=== PATIENT | male | born 1950 | race African-American/Black ===

== ENCOUNTER 2017-07-11 16:43 | Emergency (ER) | payer MEDICARE, BC ==
[2017-07-11] MEDS ORDERED: Lidocaine 2% PF 10 ML AMP (For Epidural Use) ONE (18:20)
--- NOTE | 2017-07-11 20:08 | RAD ---
THREE VIEWS OF THE RIGHT FOOT: 07/11/17 COMPARISON: None. HISTORY: Right foot pain after injury. FINDINGS: Three views of the right foot shows dislocation of the metatarsophalangeal joints of the third and f ourth toes. Surrounding soft tissue swelling is seen. No obvious fracture is seen but overlapping duong ne limits evaluation. There are degenerative changes in the midfoot. IMPRESSION: Dislocation of the metatarsophalangeal joints of the third and fourth toes. POS: HELDER
--- NOTE | 2017-07-11 21:26 | RAD ---
THREE VIEWS OF THE RIGHT FOOT: 07/11/17 COMPARISON: None. HISTORY: Reduction of dislocated toes of the right foot. FINDINGS: Three views of the right foot shows interval reduction of the third and fourth toe metatarsophalange al dislocations. No fracture is seen. Degenerative changes are seen in the midfoot. IMPRESSION: Reduction of third and fourth metatarsophalangeal dislocations. POS: SURYA
== END 2017-07-11 19:29 | disposition home or self-care (01) ==
LOC: ERS 16:43
DX: S93.124A Dislocation of metatarsophalangeal joint of right lesser toe(s), initial encounter (principal); Z79.899 Other long term (current) drug therapy; W17.89XA Other fall from one level to another, initial encounter
CPT/HCPCS: 28630; J2001

== ENCOUNTER 2021-01-14 14:33 | Outpatient (CLI) | payer MEDICARE | END 2021-01-14 14:34 | disposition home or self-care (01) | LOC: BICRAD 14:33 | PROVIDERS: ATTEND Internal Medicine Medical Oncology | DX: C90.00 Multiple myeloma not having achieved remission (principal); D47.2 Monoclonal gammopathy | CPT/HCPCS: 77075; 80053; 82248; 83615; 83883; 84100; 84550; 86334 ==

== ENCOUNTER 2021-02-01 08:17 | Day surgery (SDC) | payer MEDICARE ==
[2021-01-28 13:52] VITALS: BMI 39.5
[2021-02-01 09:45] LABS: PTT 26.1 sec (22.9-36.1); Prothrombin Time 13.3 sec (12.0-14.7)
[2021-02-01 12:01] VITALS: BP 120/70; TEMP 98
== END 2021-02-01 12:25 | disposition home or self-care (01) ==
LOC: CT 08:17
PROVIDERS: ATTEND Internal Medicine Medical Oncology
PROC: 07DR3ZX Extraction of Iliac Bone Marrow, Percutaneous Approach, Diagnostic (ICD-10-PCS; principal; 2021-02-01)
DX: C90.00 Multiple myeloma not having achieved remission (principal); D47.2 Monoclonal gammopathy; E78.5 Hyperlipidemia, unspecified; J45.909 Unspecified asthma, uncomplicated; K21.9 Gastro-esophageal reflux disease without esophagitis; G47.33 Obstructive sleep apnea (adult) (pediatric); N40.0 Benign prostatic hyperplasia without lower urinary tract symptoms; Z79.82 Long term (current) use of aspirin; Z79.899 Other long term (current) drug therapy
CPT/HCPCS: 20225; 77012; 85097; 88184; 88237; 88264; 88280; 88305; 88307; 88311; 88313; 88341; 88342; 88365

== ENCOUNTER 2021-02-03 08:59 | Outpatient (CLI) | payer MEDICARE | END 2021-02-03 09:00 | disposition home or self-care (01) | LOC: PET 08:59 | PROVIDERS: ATTEND Internal Medicine Medical Oncology | DX: C90.00 Multiple myeloma not having achieved remission (principal); D47.2 Monoclonal gammopathy | CPT/HCPCS: 78815; A9552 ==

== ENCOUNTER 2023-02-02 09:53 | Inpatient (IN) | payer MEDICARE, OTHER ==
[2023-02-02 10:47] LABS: #Lymphocytes 0.5 thou/uL (1.20-3.40); #Monocytes 0.2 thou/uL (0.11-0.59); #Neutrophils 4.8 thou/uL (1.40-6.50); %Basophils 0.2 % (0.0-1.0); %Eosinophils 0.2 % (0.0-10.0); %Lymphocytes 9.4 % (21.0-51.0); %Monocytes 2.7 % (0.0-10.0); %Neutrophils 87.5 % (42.0-75.0); Hemoglobin 12.2 g/dL (14.0-18.0); Mean Corpuscular Hemoglobin 31.5 pg (27.0-31.0); Mean Corpuscular Volume 92.7 fl (78.0-98.0); Mean Platelet Volume 9.6 fL (7.4-10.4); Platelet Count 133 10x3/uL (130-400); RBC Distribution Width 15.1 % (11.5-14.5); Red Blood Cell (RBC) Count 3.88 mill/uL (4.70-6.10); White Blood Cell (WBC) Count 5.5 10x3/uL (4.8-10.8)
[2023-02-02 11:07] LABS: ALT (SGPT) 31 U/L (8-55); AST (SGOT) 43 U/L (5-34); Albumin 3.9 g/dL (3.4-4.8); Alkaline Phosphatase 57 U/L (40-110); Anion Gap 14 mmol/L (10-20); BUN (Urea Nitrogen) 15 mg/dL (8.4-25.7); Bilirubin, Total 0.7 mg/dL (0.2-1.2); Calc. Creatinine Clearance 0 mL/min (70-130); Calcium 8.6 mg/dL (7.8-10.44); Carbon Dioxide 17 mmol/L (23-31); Chloride 113 mmol/L (98-107); Estimated GFR 73; Globulin 2.3 g/dL (2.4-3.5); Glucose 120 mg/dL (83-110); Potassium 4.1 mmol/L (3.5-5.1); Protein, Total 6.2 g/dL (5.8-8.1); Sodium 140 mmol/L (136-145)
[2023-02-02 11:09] LABS: D-Dimer Test 19.56 *mcg/mL (0.27-0.43)
[2023-02-02 11:30] LABS: CKMB 1.8 ng/mL (0-6.6)
[2023-02-02] MEDS ORDERED: Ondansetron PF 4 MG/2 ML Vial IVP PRN (12:36)
[2023-02-02] MEDS ORDERED: Calcium Carbonate 500 MG ChewTAB PO PRN (12:36)
[2023-02-02] MEDS ORDERED: Acetaminophen 325 MG TAB PO PRN (12:36)
[2023-02-02] MEDS ORDERED: Ondansetron ODT 4 MG TAB PO PRN (12:36)
[2023-02-02] MEDS ORDERED: Senokot S 8.6-50 MG TAB PO PRN (12:36)
[2023-02-02] MEDS ORDERED: Heparin 10,000 UNITS/ 10 ML VIAL SLOW IVP SCH (12:45)
[2023-02-02] MEDS ORDERED: Heparin 10,000 UNITS/ 10 ML VIAL ONE (12:47)
[2023-02-02] MEDS ORDERED: Heparin 25,000 units/D5W 500 ML ONE (12:47)
[2023-02-02 13:56] LABS: Platelet Count 135 10x3/uL (130-400)
[2023-02-02 14:07] LABS: Bilirubin Negative (Negative); Blood, Urine Negative (Negative); Clarity Clear (Clear); Glucose, Urine (Dipstick) Normal (Negative); Ketone, Urine Negative (Negative); Leukocyte Negative Leu/uL (Negative); Nitrite Negative (Negative); Protein, Urine (Dipstick) Negative (Neg-Trace); Specific Gravity, Urine 1.003 (1.002-1.036); Urobilinogen Normal mg/dL (Less than 2)
[2023-02-02 14:22] LABS: Troponin I 0.056 ng/mL (< 0.028)
[2023-02-02 14:23] LABS: PTT Greater than 250.0 sec (22.9-36.1)
[2023-02-02 15:18] VITALS: BMI 37.0
[2023-02-02 16:15] LABS: PTT 194.1 sec (22.9-36.1)
[2023-02-02 16:38] LABS: Troponin I 0.053 ng/mL (< 0.028)
[2023-02-02] MEDS: Famotidine 20 MG TAB PO SCH (20:02)
[2023-02-03] MEDS: Heparin 25,000 units/D5W 500 ML IVPB SCH ×2 (04:18→21:00)
[2023-02-03 05:47] LABS: #Monocytes 0.8 thou/uL (0.11-0.59); #Neutrophils 6.1 thou/uL (1.40-6.50); %Basophils 0.3 % (0.0-1.0); %Eosinophils 0.1 % (0.0-10.0); %Lymphocytes 13.2 % (21.0-51.0); %Monocytes 9.5 % (0.0-10.0); %Neutrophils 76.8 % (42.0-75.0); Hemoglobin 11.6 g/dL (14.0-18.0); Mean Corpuscular HGB CONC 33.5 g/dL (32.0-36.0); Mean Corpuscular Hemoglobin 31.4 pg (27.0-31.0); Mean Corpuscular Volume 93.8 fl (78.0-98.0); Platelet Count 126 10x3/uL (130-400); RBC Distribution Width 15.4 % (11.5-14.5); White Blood Cell (WBC) Count 7.9 10x3/uL (4.8-10.8)
[2023-02-03 05:59] LABS: PTT 122.4 sec (22.9-36.1)
[2023-02-03 06:09] LABS: ALT (SGPT) 25 U/L (8-55); AST (SGOT) 16 U/L (5-34); Albumin 3.5 g/dL (3.4-4.8); Alkaline Phosphatase 55 U/L (40-110); Anion Gap 12 mmol/L (10-20); BUN (Urea Nitrogen) 15 mg/dL (8.4-25.7); Bilirubin, Total 0.7 mg/dL (0.2-1.2); Calc. Creatinine Clearance 140 mL/min (70-130); Calcium 8.9 mg/dL (7.8-10.44); Carbon Dioxide 17 mmol/L (23-31); Chloride 112 mmol/L (98-107); Estimated GFR 89; Globulin 2.5 g/dL (2.4-3.5); Glucose 149 mg/dL (83-110); Potassium 4.2 mmol/L (3.5-5.1); Sodium 137 mmol/L (136-145)
[2023-02-03] MEDS ORDERED: Dexamethasone 4 MG TAB PO SCH (09:00)
[2023-02-03] MEDS: Famotidine 20 MG TAB PO SCH ×2 (10:18→21:09)
[2023-02-03] MEDS: Aspirin 81 mg Enteric Coated Tablet PO SCH (10:19)
[2023-02-03] MEDS: valACYclovir 500 MG TAB PO SCH (10:20)
[2023-02-03] MEDS: Cholecalciferol 1,000 UNITS (25 MCG) TAB PO SCH (10:20)
[2023-02-03] MEDS: Calcium Carbonate 600 MG TAB PO SCH (10:21)
[2023-02-03] MEDS: Tamsulosin HCl 0.4 MG CAP PO SCH (10:21)
[2023-02-03] MEDS: POMALIDOMIDE 2 MG PO SCH (12:37)
[2023-02-03] MEDS ORDERED: Polyethylene Glycol 3350 17 GM Packet PO SCH (13:00)
[2023-02-03] MEDS ORDERED: Docusate 100 MG CAP PO SCH (13:00)
[2023-02-03] MEDS: Terbinafine 1% 30 GM TUBE TOP SCH ×2 (17:19→21:09)
[2023-02-03] MEDS: Docusate 100 MG CAP PO SCH (21:09)
[2023-02-04 01:59] LABS: Anion Gap 12 mmol/L (10-20); BUN (Urea Nitrogen) 15 mg/dL (8.4-25.7); Calc. Creatinine Clearance 130 mL/min (70-130); Calcium 9.3 mg/dL (7.8-10.44); Carbon Dioxide 22 mmol/L (23-31); Chloride 109 mmol/L (98-107); Estimated GFR 81; Glucose 135 mg/dL (83-110); Magnesium 2.3 mg/dL (1.6-2.6); Potassium 4.2 mmol/L (3.5-5.1); Sodium 139 mmol/L (136-145)
[2023-02-04] MEDS ORDERED: Electrolyte Replacement Protocol FS PRN (02:00)
[2023-02-04 03:51] LABS: #Lymphocytes 1.3 thou/uL (1.20-3.40); #Monocytes 1.2 thou/uL (0.11-0.59); #Neutrophils 6.6 thou/uL (1.40-6.50); %Eosinophils 0.4 % (0.0-10.0); %Lymphocytes 14.5 % (21.0-51.0); %Monocytes 12.9 % (0.0-10.0); %Neutrophils 72.1 % (42.0-75.0); Hemoglobin 11.3 g/dL (14.0-18.0); Mean Corpuscular HGB CONC 34.6 g/dL (32.0-36.0); Mean Corpuscular Hemoglobin 32.3 pg (27.0-31.0); Mean Corpuscular Volume 93.4 fl (78.0-98.0); Platelet Count 131 10x3/uL (130-400); RBC Distribution Width 15.4 % (11.5-14.5); White Blood Cell (WBC) Count 9.1 10x3/uL (4.8-10.8)
[2023-02-04] MEDS: Docusate 100 MG CAP PO SCH ×2 (08:41→20:35)
[2023-02-04] MEDS: Cholecalciferol 1,000 UNITS (25 MCG) TAB PO SCH (08:42)
[2023-02-04] MEDS: Calcium Carbonate 600 MG TAB PO SCH (08:42)
[2023-02-04] MEDS: Tamsulosin HCl 0.4 MG CAP PO SCH (08:42)
[2023-02-04] MEDS: Famotidine 20 MG TAB PO SCH ×2 (08:42→20:35)
[2023-02-04] MEDS: Terbinafine 1% 30 GM TUBE TOP SCH ×3 (08:43→20:35)
[2023-02-04] MEDS: valACYclovir 500 MG TAB PO SCH (08:43)
[2023-02-04] MEDS: Polyethylene Glycol 3350 17 GM Packet PO SCH (08:43)
[2023-02-04] MEDS: Aspirin 81 mg Enteric Coated Tablet PO SCH (08:43)
[2023-02-04] MEDS: POMALIDOMIDE 2 MG PO SCH (08:43)
[2023-02-04] MEDS: Heparin 25,000 units/D5W 500 ML IVPB SCH (09:28)
[2023-02-04 11:24] LABS: PTT 193.4 sec (22.9-36.1)
[2023-02-04 13:26] LABS: Hemoglobin 12.2 g/dL (14.0-18.0); Platelet Count 133 10x3/uL (130-400)
[2023-02-04] MEDS ORDERED: PHENYLEPHRINE-NS 100 MCG/ML 10 ML SYRINGE ONE (16:59)
[2023-02-04] MEDS ORDERED: PROPOFOL 20 ML ONE (16:59)
[2023-02-04] MEDS ORDERED: PROPOFOL 200 MG/20 ML VIAL ONE (17:02)
[2023-02-04] MEDS ORDERED: Ketamine 50 MG/ML (10ML VIAL) ONE (17:23)
[2023-02-04] MEDS ORDERED: KETAMINE 100 MG/ML (5ML VIAL) ONE (17:25)
[2023-02-05] MEDS: Heparin 25,000 units/D5W 500 ML IVPB SCH (00:13)
[2023-02-05 02:58] LABS: Eosinophils 1 % (0-10); Hemoglobin 11.2 g/dL (14.0-18.0); Hypochromia SLIGHT = 6-15 cells (100X) (0-5/hpf); Lymphocytes 27 % (21-51); MDiff Complete? YES; Mean Corpuscular HGB CONC 35.2 g/dL (32.0-36.0); Mean Corpuscular Hemoglobin 32.7 pg (27.0-31.0); Monocytes 12 % (0-10); Neutrophil 60 % (42-75); Platelet Count 123 10x3/uL (130-400); Platelet Morphology Comment Appears Decreased; RBC Distribution Width 15.4 % (11.5-14.5); Red Blood Cell (RBC) Count 3.42 mill/uL (4.70-6.10); White Blood Cell (WBC) Count 5.4 10x3/uL (4.8-10.8)
[2023-02-05] MEDS ORDERED: Apixaban 5 MG TAB PO SCH (09:00)
[2023-02-05 09:36] VITALS: BP 121/64; TEMP 97.1
[2023-02-05] MEDS: Polyethylene Glycol 3350 17 GM Packet PO SCH (09:44)
[2023-02-05] MEDS: Cholecalciferol 1,000 UNITS (25 MCG) TAB PO SCH (09:45)
[2023-02-05] MEDS: valACYclovir 500 MG TAB PO SCH (09:46)
[2023-02-05] MEDS: Aspirin 81 mg Enteric Coated Tablet PO SCH (09:46)
[2023-02-05] MEDS: Calcium Carbonate 600 MG TAB PO SCH (09:46)
[2023-02-05] MEDS: Tamsulosin HCl 0.4 MG CAP PO SCH (09:46)
[2023-02-05] MEDS: Docusate 100 MG CAP PO SCH (09:47)
[2023-02-05] MEDS: Famotidine 20 MG TAB PO SCH (09:47)
[2023-02-05] MEDS: Terbinafine 1% 30 GM TUBE TOP SCH (09:47)
[2023-02-05] MEDS: POMALIDOMIDE 2 MG PO SCH (09:48)
[2023-03-01] MEDS ORDERED: POMALIDOMIDE 2 MG PO SCH (09:00)
== END 2023-02-05 12:48 | disposition home or self-care (01) | DRG 175 ==
LOC: SUATTDRO 09:53 → ERS 09:53 → 2NO 14:27
PROVIDERS: ADMIT Family Medicine; ATTEND Family Medicine
PROC: B244ZZ4 Ultrasonography of Right Heart, Transesophageal (ICD-10-PCS; principal; 2023-02-04)
DX: I26.99 Other pulmonary embolism without acute cor pulmonale (principal); J96.01 Acute respiratory failure with hypoxia; Z94.81 Bone marrow transplant status; C90.00 Multiple myeloma not having achieved remission; I82.431 Acute embolism and thrombosis of right popliteal vein; K59.00 Constipation, unspecified; E78.5 Hyperlipidemia, unspecified; J45.909 Unspecified asthma, uncomplicated; K21.9 Gastro-esophageal reflux disease without esophagitis; G47.33 Obstructive sleep apnea (adult) (pediatric); N40.0 Benign prostatic hyperplasia without lower urinary tract symptoms; R94.31 Abnormal electrocardiogram [ECG] [EKG]; R91.1 Solitary pulmonary nodule; R00.1 Bradycardia, unspecified; Z79.899 Other long term (current) drug therapy; Z79.82 Long term (current) use of aspirin; Z90.49 Acquired absence of other specified parts of digestive tract; Z98.890 Other specified postprocedural states
CPT/HCPCS: 36415; 36416; 71275; 80048; 80053; 81003; 82553; 83735; 83880; 84484; 85014; 85018; 85025; 85049; 85379; 85610; 85730; 93005; 93010; 93306; 93312; 93970; 94760; 96365; 96375; J1644; J2704; J8540

== ENCOUNTER 2023-04-11 17:27 | Emergency (ER) | payer OTHER | END 2023-04-11 20:23 | disposition home or self-care (01) | LOC: ERS 17:27 | DX: I82.461 Acute embolism and thrombosis of right calf muscular vein (principal) ==

== ENCOUNTER 2023-09-18 10:43 | Outpatient (CLI) | payer OTHER | END 2023-09-18 10:44 | disposition home or self-care (01) | LOC: BICCT 10:43 | PROVIDERS: ATTEND Internal Medicine | DX: G47.30 Sleep apnea, unspecified (principal); R91.8 Other nonspecific abnormal finding of lung field | CPT/HCPCS: 71250 ==

== ENCOUNTER → 2024-08-26 | Outpatient (CLI) | payer OTHER | LOC: PET 08:45 | PROVIDERS: ATTEND Internal Medicine | DX: C90.00 Multiple myeloma not having achieved remission (principal); C79.51 Secondary malignant neoplasm of bone | CPT/HCPCS: 78815; A9552 ==

== ENCOUNTER 2024-11-17 13:28 | Outpatient (CLI) | payer OTHER | END 2024-11-17 13:29 | disposition home or self-care (01) | LOC: BICMAMMO 13:28 | PROVIDERS: ATTEND Internal Medicine | DX: C79.51 Secondary malignant neoplasm of bone (principal); C90.00 Multiple myeloma not having achieved remission; D72.818 Other decreased white blood cell count | CPT/HCPCS: 77080 ==

== ENCOUNTER 2025-08-25 11:45 | Outpatient (CLI) | payer OTHER | END 2025-08-25 11:46 | disposition home or self-care (01) | LOC: PET 11:45 | PROVIDERS: ATTEND Internal Medicine | DX: C90.00 Multiple myeloma not having achieved remission (principal); C79.51 Secondary malignant neoplasm of bone; D72.818 Other decreased white blood cell count; Z79.899 Other long term (current) drug therapy; M89.58 Osteolysis, other site | CPT/HCPCS: 78815; A9552 ==